=== PATIENT | female | born 1990 | race Caucasian/White ===

== ENCOUNTER 2018-08-15 10:43 | Inpatient (IN) ==
--- OUTSIDE RECORDS SUMMARY | 2018-08-15 10:48 | External Medical Summary | Continuity of Care Document ---
:1990 Author Name Doris Navarro Address Unavailable Unavailable , Care Team Providers Name Role Phone NonMNPG [email or web address] Unavailable [email or web address], [email or web address] Unavailable Unavailable Problems Active medical history not documented Allergies and Adverse Reactions Allergy history not documented Medications Medications not documented Procedures Procedures not documented Immunizations Immunizations not documented Plan of Treatment Planned Observations Planned Goals not documented Results No Known Results Results not documented
[2018-08-15] MEDS ORDERED: OXYTOCIN 10 UNITS/ML VIAL IM ONE ×2 (11:15→11:16)
[2018-08-15] MEDS ORDERED: SODIUM CHLORIDE 0.9% 1000ML 2,000 ML IV ONE (11:16)
[2018-08-15] MEDS ORDERED: fentaNYL citrate 100 MCG/2 ML VIAL IV STA (11:16)
[2018-08-15] MEDS ORDERED: fentaNYL citrate 100 MCG/2 ML VIAL ONE (11:16)
[2018-08-15 11:33] LABS: iSTAT Creatinine 0.6 mg/dl (0.6-1.3); iSTAT Hemoglobin 13.6 g/dl (12.0-16.0); iSTAT Ionized Calcium 1.04 mmol/l (1.12-1.32); iSTAT Potassium 2.8 mEq/L (3.3-5.0)
[2018-08-15 11:40] LABS: Hematocrit (blood only) 38.8 % (37-47); Hemoglobin 13.3 g/dL (12.0-16.0); Mean Corpuscular Hgb Conc 34.3 g/dL (32-36); Mean Platelet Volume 10.8 fL (7.4-10.4); Platelet Count 287 K/uL (130-400); RDW Coefficient of Variation 13.2 % (11.5-14.5); RDW Standard Deviation 44.6 fL (36.4-46.3); Red Blood Count 4.17 M/uL (4.2-5.4); White Blood Count 24.24 K/uL (4.8-10.8)
[2018-08-15] MEDS ORDERED: LABETALOL HCL IV 5 MG/ML 20ML IV ONE (11:40)
[2018-08-15] MEDS ORDERED: ACETAMINOPHEN 325 MG TAB PO PRN (11:42)
[2018-08-15] MEDS ORDERED: SUPERCREAM 0.870% 15 GM JAR EXT PRN (11:42)
[2018-08-15] MEDS ORDERED: DIPHTHERIA/TETANUS/PERTUSSIS 0.5 ML SYR/VIAL IM ONE (11:42)
[2018-08-15] MEDS ORDERED: OXYCODONE/ACETAMINOPHEN 5mg/325mg TAB PO PRN (11:42)
[2018-08-15] MEDS ORDERED: HYDROCORTISONE ACETATE 25 MG SUPP PR PRN (11:42)
[2018-08-15] MEDS ORDERED: OXYTOCIN 30 UNITS/500 ML BAG IV PRN (11:42)
[2018-08-15] MEDS ORDERED: BENZOCAINE 20% AER SPR 82.5 GM CAN EXT PRN (11:42)
[2018-08-15] MEDS ORDERED: MAGNESIUM SULFATE 4GM / WTR 100 ML BAG IV ONE ×2 (11:46→11:56)
[2018-08-15] MEDS ORDERED: LABETALOL HCL IV 5 MG/ML 20ML IV STA ×2 (11:47→12:06)
[2018-08-15 11:48] LABS: INR 0.9 (0.9-1.1); Partial Thromboplastin Ratio 0.9; Partial Thromboplastin Time 25.2 Seconds (21.0-31.0); Prothrombin Time 9.5 Seconds (9.0-12.0)
[2018-08-15] MEDS ORDERED: OXYTOCIN 30 UNITS/500ML NSS ONE (11:49)
[2018-08-15] MEDS ORDERED: MAGNESIUM SULFATE 40GM / WTR 1,000 ML BAG IV ONE ×2 (11:56→12:38)
[2018-08-15 11:59] LABS: Albumin Level 2.4 gm/dl (3.4-5.0); BUN Creatinine Ratio 9.1 (10-20); Bilirubin Direct 0.1 mg/dl (0-0.2); Calcium 8.2 mg/dl (8.5-10.1); Creatinine Clr Calc Pharmacy 87.3 ml/min; Est GFR (African American) 111.2; Est GFR (Non-African American) 95.9; Magnesium 1.5 mg/dl (1.8-2.4); Potassium 2.7 mmol/L (3.5-5.1)
--- NOTE | 2018-08-15 12:00 | Communication Note ---
Date of Service: August 15, 2018 Patient placed on monitors on L&D and found to have BP 180/100s. She notes this is "not unusual" for her and does not know what her normal / best BP range might be. Exam is NAD, breathing normally, abd postgravid, no RUQ pain, but DTR 3+ patellae and mild ankle edema bilaterally. Labs thus far do NOT appear to show preeclampsia, but with these BP values, hyperreflexia and quite possibly abruption, will assume she is atypical preeclampsia with severe features until further observation shows otherwise. Magnesium 4G bolus and 2G maintenance ordered; Cr noted to be 0.6, renal clearance should be OK. Potassium is noted to be low and will order repletion as well. Patient received first dose IV labetalol 20mg as well, will titrate doses to control of BP.
[2018-08-15 12:09] LABS: Base Excess Cord Venous Blood -13.8 mEq/L (-7.7-1.9); Cord Venous Blood HCO3 18 mmol/L (18.4-26.8); Cord Venous Blood PCO2 67 mmHg (30.4-57.2); Cord Venous Blood PO2 26 mmHg (14.1-43.3); Cord Venous Blood pH 7.05 (7.20-7.44)
[2018-08-15 12:10] LABS: O2 Saturation Cord Venous Bld < 60.0 % (<68)
[2018-08-15 12:16] LABS: Albumin Globulin Ratio 0.5 (0.9-2); Bilirubin,Total 0.4 mg/dl (0.2-1); Globulin 4.4 gm/dl (2.5-4.0); Phosphorus 0.6 mg/dl (2.5-4.9); Total Protein 6.8 gm/dl (6.4-8.2)
[2018-08-15 12:18] LABS: Base Excess Cord Arterial Bld -15.9 mEq/L (-9-1.8); CO2 Cord Arterial Blood 94 mmHg (39.1-73.5); HCO3 Cord Arterial Blood 19 mmol/L (19.7-28.5); pH Cord Arterial Blood 6.93 (7.1-7.38)
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
[2018-08-15 12:26] LABS: Basophils # (auto) 0.03 K/uL (0-0.2); Basophils % (auto) 0.1 %; Echinocytes 1+; Eosinophils # (auto) 0.05 K/uL (0-0.5); Eosinophils % (auto) 0.2 %; Immature Granulocytes # (auto) 0.07 K/uL (0.00-0.02); Immature Granulocytes % (auto) 0.3 %; Lymphocytes # (auto) 2.43 K/uL (1.2-3.4); Monocytes # (auto) 1.62 K/uL (0.11-0.59); Monocytes % (auto) 6.7 %; Neutrophils # (auto) 20.04 K/uL (1.4-6.5); Neutrophils % (auto) 82.7 %
--- NOTE | 2018-08-15 12:35 | Communication Note ---
Date of Service: August 15, 2018 Note that care of patient was signed out to Dr. Kay who returns to cover L&D. I am now in pre-op suite preparing for a planned operation in the main OR. Dr. Kay is aware of plan for Magnesium, of IV Labetalol given by my order (), and of critical Phos level just resulted prior to my departure. Cord gas results also reviewed.
[2018-08-15] MEDS: POTASSIUM CHLORIDE / WTR 10 MEQ/100 ML PLCT IV SCH ×2 (12:36→13:44)
[2018-08-15 12:39] LABS: Appearance Urine Clear (Clear); Bacteria Urine Automated 1+ (Negative); Bilirubin Urine Negative (Negative); Blood Urine Trace (Negative); Color Urine Yellow; Glucose Urine UA Negative (Negative); Leukocyte Esterase Urine Negative (Negative); Nitrite Urine Negative (Negative); Protein Urine Negative (Negative); RBC Urine Automated 0-4 /hpf (0-4); Specific Gravity Urine 1.017 (1.000-1.030); Urobilinogen Urine Negative (Negative); pH Urine 8.5 (4.5-7.5)
[2018-08-15 12:45] LABS: Ketones Urine 3+ (Negative)
[2018-08-15 12:54] LABS: Hepatitis B Surface Antibody Non-Immune
[2018-08-15 13:04] LABS: Creatinine Urine Random 33.6 mg/dl; Total Protein Urine Random 13.3 mg/dl (0-11.9)
[2018-08-15 13:05] LABS: Rubella IgG Antibody Immune (Immune)
[2018-08-15 13:06] LABS: Amphetamines+Metham, Urine Pos (Neg); Barbiturates, Urine Neg (Neg); Benzodiazepine, Urine Neg (Neg); Cocaine, Urine Neg (Neg); MDMA (Ecstacy), Urine Neg (Neg); Methadone, Urine Neg (Neg); Opiate, Urine Neg (Neg); Phencyclidine, Urine Neg (Neg)
[2018-08-15] MEDS ORDERED: MAGNESIUM SULFATE / WTR 40 GM/1,000 ML BAG IV ONE (13:15)
[2018-08-15] MEDS ORDERED: SODIUM PHOSPHATE 20 MMOL in SODIUM CHLORIDE 0.9% 500 ML IV ONE (13:15)
[2018-08-15 13:33] LABS: Hepatitis C IgG 13Yrs+Old_Rflx Neg (Neg)
[2018-08-15] MEDS: LACTATED RINGER'S 1,000 ML IV SCH (14:59)
[2018-08-15 17:47] LABS: Hematocrit (blood only) 34.7 % (37-47); Hemoglobin 11.8 g/dL (12.0-16.0); Mean Platelet Volume 10.8 fL (7.4-10.4); Platelet Count 243 K/uL (130-400); RDW Coefficient of Variation 13.2 % (11.5-14.5); RDW Standard Deviation 44.8 fL (36.4-46.3); Red Blood Count 3.73 M/uL (4.2-5.4)
[2018-08-15 18:19] LABS: Basophils # (auto) 0.01 K/uL (0-0.2); Eosinophils # (auto) 0.03 K/uL (0-0.5); Eosinophils % (auto) 0.1 %; Immature Granulocytes # (auto) 0.08 K/uL (0.00-0.02); Immature Granulocytes % (auto) 0.3 %; Lymphocytes # (auto) 2.16 K/uL (1.2-3.4); Lymphocytes % (auto) 8.6 %; Monocytes # (auto) 1.86 K/uL (0.11-0.59); Monocytes % (auto) 7.4 %; Neutrophils # (auto) 21.06 K/uL (1.4-6.5); Neutrophils % (auto) 83.6 %
[2018-08-15 18:37] LABS: Alanine Aminotransferase 19 U/L (12-78); Albumin Globulin Ratio 0.5 (0.9-2); Alkaline Phosphatase 153 U/L (45-117); Aspartate Aminotransferase 16 U/L (15-37); BUN Creatinine Ratio 10.4 (10-20); Bilirubin Direct < 0.1 mg/dl (0-0.2); Bilirubin,Total 0.3 mg/dl (0.2-1); Blood Urea Nitrogen 5 mg/dl (7-18); Calcium 6.9 mg/dl (8.5-10.1); Carbon Dioxide 22 mmol/L (21-32); Chloride 107 mmol/L (98-107); Creatinine Clr Calc Pharmacy 117.8 ml/min; Est GFR (African American) > 150.0; Est GFR (Non-African American) 131.9; Globulin 3.9 gm/dl (2.5-4.0); Glucose 100 mg/dl (70-99); Potassium 3.8 mmol/L (3.5-5.1); Sodium 136 mmol/L (136-145); Total Protein 5.9 gm/dl (6.4-8.2)
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
[2018-08-15] MEDS: METOPROLOL SUCC 50MG EXT REL TAB PO SCH (19:39)
[2018-08-15] MEDS: IBUPROFEN 600 MG TAB PO PRN (19:39)
[2018-08-15] MEDS: DOCUSATE SODIUM 100 MG CAP PO SCH (21:37)
[2018-08-15 22:40] LABS: Phosphorus 2.6 mg/dl (2.5-4.9)
[2018-08-16] MEDS: LACTATED RINGER'S 1,000 ML IV SCH (06:30)
--- NOTE | 2018-08-16 06:33 | Obstetrical Progress Note ---
Date of Service <Kiel Urena DO - Last Filed: 08/16/18 06:39> August 16, 2018 Assessment & Plan <Kiel Urena DO - Last Filed: 08/16/18 06:39> (1) Spontaneous vaginal delivery: -vital signs reviewed and WNL. BP improved, will cont monitor -last Hgb 11.8 -pt doing well clinically -encourage ambulation, monitor and control pain with motrin tylenol, cont regular diet, monitor lochia Subjective <Kiel Urena DO - Last Filed: 08/16/18 06:39> 28 y/o PPD1 found in bed this morning in NAD. Reports no acute overnight events. Pt states that she has no pain other than appropriate soreness. Reports that has not had any food intake but tolerating liquids. Has not yet attempted to ambulate. No issues with voiding, no gas/BM yet. No other a cute concerns or complaints. Review of Systems All systems reviewed & are unremarkable except as noted in HPI & below Physical Exam <Kiel Urena DO - Last Filed: 08/16/18 06:39> Constitutional WD/WN, vitals as above Respiratory normal respiratory effort, lungs clear to auscultation Cardiovascular RRR, no murmur, no edema Gastrointestinal (Abdomen) mild abd tenderness Skin no rashes, warm and dry Psychiatric A+Ox3, euthymic affect Lymphatic no LE swelling, no calf tenderness Results & Data <Kiel Urena DO - Last Filed: 08/16/18 06:39> Vital Signs (Past 12 Hours) Vital Signs Temp Pulse Pulse Resp BP Pulse Ox 08/16/18 06:26 64 98 08/16/18 06:21 69 98 08/16/18 06:16 63 97 08/16/18 06:11 68 97 08/16/18 06:06 65 97 08/16/18 06:04 61 142/78 H 08/16/18 06:01 65 98 08/16/18 05:56 63 97 08/16/18 05:51 62 99 08/16/18 05:46 64 98 08/16/18 05:41 61 99 08/16/18 05:36 67 99 06/18/19 05:31 68 99 06/18/19 05:26 68 100 06/18/19 05:21 66 99 06/18/19 05:16 70 99 06/18/19 05:12 18 06/18/19 05:11 65 98 06/18/19 05:06 71 100 06/18/19 05:04 71 152/92 H 18/19 05:01 67 100 06/18/19 04:56 66 99 06/18/19 04:51 67 99 06/18/19 04:46 66 99 06/18/19 04:41 61 99 06/18/19 04:36 66 98 06/18/19 04:31 60 98 06/18/19 04:26 62 99 06/18/19 04:21 61 98 06/18/19 04:16 61 99 06/18/19 04:11 61 99 0618/19 04:06 62 98 06/18/19 04:04 58 L 148/81 H 08/16/ 04:01 64 98 0618/19 04:00 36.7 C 18 98 0618/19 03:56 68 99 06/18/19 03:51 72 100 06/18/19 03:46 71 99 06/18/19 03:41 65 98 06/18/19 03:36 64 98 06/18/19 03:31 61 99 06/18/19 03:26 62 99 06/18/19 03:21 62 99 06/18/19 03:16 61 97 06/18/19 03:11 66 98 06/18/19 03:06 69 98 06/18/19 03:04 64 143/80 H 18/19 03:01 62 98 06/18/19 02:56 63 98 06/18/19 02:51 61 99 06/18/19 02:46 61 100 06/18/19 02:41 66 97 06/18/19 02:36 64 99 06/18/19 02:31 76 99 06/18/19 02:26 63 99 06/18/19 02:21 61 98 06/18/19 02:16 68 98 06/18/19 02:11 64 97 06/18/19 02:06 73 98 06/18/19 02:04 72 131/87 18/19 02:01 67 97 06/18/19 02:00 18 18/19 01:56 65 97 18/19 01:51 65 98 18/19 01:46 64 98 18/19 01:41 62 98 18/19 01:36 68 97 18/19 01:31 70 99 18/19 01:26 71 99 18/19 01:21 72 99 18/19 01:16 70 99 18 01:11 66 97 18 01:07 20 08/16/18 01:06 68 98 18 01:04 68 132/82 18/ 01:01 68 98 18 00:56 67 98 18 00:51 67 98 18/ 00:46 68 97 18/ 00:41 68 98 18 00:36 70 98 18/ 00:31 70 98 18/ 00:26 72 98 18 00:21 71 98 1819 00:16 79 99 18/19 00:11 71 100 18/19 00:06 72 100 18/19 00:04 73 175/93 H 18 00:01 69 100 18/19 00:00 18 99 17 23:56 68 99 17/19 23:51 68 98 17/19 23:46 66 98 17/19 23:41 67 98 17/19 23:36 67 98 17/19 23:31 66 98 1719 23:26 69 99 17/19 23:21 68 98 17/19 23:16 81 98 17/19 23:11 76 98 0617/19 23:06 85 98 1719 23:04 82 150/93 H 17 23:01 72 99 1719 23:00 36.7 C 66 18 99 17/19 22:56 75 99 17/19 22:51 77 99 17/19 22:46 74 99 17/19 22:41 73 99 17/19 22:36 71 98 1719 22:31 76 98 06/17/19 22:26 69 97 08/15/18 22:21 68 98 08/15/18 22:16 71 98 08/15/18 22:11 79 99 08/15/18 22:06 72 97 08/15/18 22:04 67 148/84 H 08/15/18 22:01 70 97 08/15/18 22:00 18 06 21:56 71 98 08/15/18 21:51 69 99 08/15/18 21:46 71 98 08/15/18 21:41 78 97 08/15/18 21:36 84 98 08/15/18 21:31 78 100 08/15/18 21:26 83 99 08/15/18 21:21 77 100 08/15/18 21:16 82 100 08/15/18 21:11 76 99 08/15/18 21:06 76 100 08/15/18 21:04 78 165/99 H 08/15/18 21:01 71 99 08/15/18 20:56 74 97 08/15/18 20:51 80 98 08/15/18 20:46 84 98 08/15/18 20:41 84 97 08/15/18 20:36 85 98 08/15/18 20:31 82 98 08/15/18 20:26 85 98 08/15/18 20:21 88 99 08/15/18 20:16 87 99 08/15/18 20:11 84 99 08/15/18 20:06 86 100 08/15/18 20:04 85 159/95 H 08/15/18 20:01 81 100 08/15/18 20:00 37.1 C 88 18 99 08/15/18 19:40 80 100 08/15/18 19:36 80 163/97 H 08/15/18 19:35 79 100 08/15/18 19:30 81 100 08/15/18 19:25 82 100 06 19:21 83 158/97 H 08/15/18 19:20 84 100 17 19:15 78 100 08/15/18 19:10 80 100 06 19:06 80 161/93 H 08/15/18 19:05 89 100 1719 19:00 78 100 08/15/18 18:55 75 100 08/15/18 18:51 80 154/90 H 08/15/18 18:50 77 100 08/15/18 18:45 80 100 08/15/18 18:40 78 100 08/15/18 18:36 86 170/96 H 08/15/18 18:35 79 100 Laboratory Results Laboratory Results - last 24 hr 08/15/18 08/15/18 08/15/18 11:00 11:00 11:19 WBC RBC Hgb POC Hgb 13.6 Hct POC Hct 40 MCV MCH MCHC RDW Std Deviation RDW Coeff of Miguel Angel Plt Count MPV Immature Gran % (Auto) Neut % (Auto) Lymph % (Auto) Stokes % (Auto) Eos % (Auto) Baso % (Auto) Immature Gran # (Auto) Neut # (Auto) Lymph # (Auto) Stokes # (Auto) Eos # (Auto) Baso # (Auto) Echinocytes PT INR APTT PTT Ratio Cord ABG pH 6.93 L Cord ABG pCO2 94 H Cord ABG pO2 15.0 Cord ABG HCO3 19 L Cord ABG Base Excess -15.9 L Cord ABG O2 Sat < 60.0 Cord VBG pH 7.05 L Cord VBG pCO2 67 H Cord VBG pO2 26 Cord VBG HCO3 18 L Cord VBG Base Excess -13.8 L Cord VBG O2 Sat < 60.0 Barometric Pressure 732.6 732.6 Blood Gas Comments MALDONADO MALDONADO POC Sodium 139 Sodium POC Potassium 2.8 L Potassium POC Chloride 105 Chloride Carbon Dioxide POC Total CO2 14 L Anion Gap POC Anion Gap 24.0 POC BUN 6 L BUN Creatinine POC Creatinine 0.6 Est Cr Clr Drug Dosing Est GFR ( Amer) Est GFR (Non-Af Amer) BUN/Creatinine Ratio Glucose POC Glucose (other) 124 H Calcium POC Ioniz Calcium Lita 1.04 L Phosphorus Magnesium Magnesium (Sulf Ther) Total Bilirubin Direct Bilirubin AST ALT Alkaline Phosphatase Total Protein Albumin Globulin Albumin/Globulin Ratio TSH Urine Color Urine Appearance Urine pH Ur Specific [place] Urine Protein Urine Glucose (UA) Urine Ketones Urine Blood Urine Nitrite Urine Bilirubin Urine Urobilinogen Ur Leukocyte Esterase Urine WBC (Auto) Urine RBC (Auto) U Hyaline Cast (Auto) U Epithel Cells (Auto) Urine Bacteria (Auto) Ur Random Creatinine U Random Total Protein Protein/Creatinin Ratio Urine Opiates Screen Ur Methadone, Qual Urine Barbiturates Ur Phencyclidine (PCP) U Amphetamines Confirm U Amphetamin/Meth Scrn U Methamphetamin Confrm MDMA (Ecstasy) Screen U Benzodiazepines Scrn Ur Cocaine Metabolite U Marijuana (THC) Screen Ethyl Alcohol mg/dL RPR Hep Bs Antigen Hep Bs Antibody Hep Bs Antibody, Quant Hepatitis C Antibody HIV 1&2 Ab/P24 Ag 4thGn Rubella IgG Antibody Blood Type 08/15/18 08/15/18 08/15/18 11:24 11:24 11:24 WBC 24.24 H RBC 4.17 L Hgb 13.3 POC Hgb Hct 38.8 POC Hct MCV 93.0 MCH 31.9 MCHC 34.3 RDW Std Deviation 44.6 RDW Coeff of Miguel Angel 13.2 Plt Count 287 MPV 10.8 H Immature Gran % (Auto) 0.3 Neut % (Auto) 82.7 Lymph % (Auto) 10.0 Stokes % (Auto) 6.7 Eos % (Auto) 0.2 Baso % (Auto) 0.1 Immature Gran # (Auto) 0.07 H Neut # (Auto) 20.04 H Lymph # (Auto) 2.43 Stokes # (Auto) 1.62 H Eos # (Auto) 0.05 Baso # (Auto) 0.03 Echinocytes 1+ PT 9.5 INR 0.9 APTT 25.2 PTT Ratio 0.9 Cord ABG pH Cord ABG pCO2 Cord ABG pO2 Cord ABG HCO3 Cord ABG Base Excess Cord ABG O2 Sat Cord VBG pH Cord VBG pCO2 Cord VBG pO2 Cord VBG HCO3 Cord VBG Base Excess Cord VBG O2 Sat Barometric Pressure Blood Gas Comments POC Sodium Sodium POC Potassium Potassium POC Chloride Chloride Carbon Dioxide POC Total CO2 Anion Gap POC Anion Gap POC BUN BUN Creatinine POC Creatinine Est Cr Clr Drug Dosing Est GFR ( Amer) Est GFR (Non-Af Amer) BUN/Creatinine Ratio Glucose POC Glucose (other) Calcium POC Ioniz Calcium Lita Phosphorus Magnesium Magnesium (Sulf Ther) Total Bilirubin Direct Bilirubin AST ALT Alkaline Phosphatase Total Protein Albumin Globulin Albumin/Globulin Ratio TSH Urine Color Urine Appearance Urine pH Ur Specific [place] Urine Protein Urine Glucose (UA) Urine Ketones Urine Blood Urine Nitrite Urine Bilirubin Urine Urobilinogen Ur Leukocyte Esterase Urine WBC (Auto) Urine RBC (Auto) U Hyaline Cast (Auto) U Epithel Cells (Auto) Urine Bacteria (Auto) Ur Random Creatinine U Random Total Protein Protein/Creatinin Ratio Urine Opiates Screen Ur Methadone, Qual Urine Barbiturates Ur Phencyclidine (PCP) U Amphetamines Confirm U Amphetamin/Meth Scrn U Methamphetamin Confrm MDMA (Ecstasy) Screen U Benzodiazepines Scrn Ur Cocaine Metabolite U Marijuana (THC) Screen Ethyl Alcohol mg/dL RPR Hep Bs Antigen Hep Bs Antibody Hep Bs Antibody, Quant Hepatitis C Antibody HIV 1&2 Ab/P24 Ag 4thGn Rubella IgG Antibody Blood Type B Positive 08/15/18 08/15/18 08/15/18 11:24 11:52 11:52 WBC RBC Hgb POC Hgb Hct POC Hct MCV MCH MCHC RDW Std Deviation RDW Coeff of Miguel Angel Plt Count MPV Immature Gran % (Auto) Neut % (Auto) Lymph % (Auto) Stokes % (Auto) Eos % (Auto) Baso % (Auto) Immature Gran # (Auto) Neut # (Auto) Lymph # (Auto) Stokes # (Auto) Eos # (Auto) Baso # (Auto) Echinocytes PT INR APTT PTT Ratio Cord ABG pH Cord ABG pCO2 Cord ABG pO2 Cord ABG HCO3 Cord ABG Base Excess Cord ABG O2 Sat Cord VBG pH Cord VBG pCO2 Cord VBG pO2 Cord VBG HCO3 Cord VBG Base Excess Cord VBG O2 Sat Barometric Pressure Blood Gas Comments POC Sodium Sodium 139 POC Potassium Potassium 2.7 L POC Chloride Chloride 106 Carbon Dioxide 17 L POC Total CO2 Anion Gap 15.0 H POC Anion Gap POC BUN BUN 8 Creatinine 0.84 POC Creatinine Est Cr Clr Drug Dosing 87.3 Est GFR ( Amer) 111.2 Est GFR (Non-Af Amer) 95.9 BUN/Creatinine Ratio 9.1 L Glucose 115 H POC Glucose (other) Calcium 8.2 L POC Ioniz Calcium Lita Phosphorus 0.6 L* Magnesium 1.5 L Magnesium (Sulf Ther) Total Bilirubin 0.4 Direct Bilirubin 0.1 AST 16 ALT 20 Alkaline Phosphatase 182 H Total Protein 6.8 Albumin 2.4 L Globulin 4.4 H Albumin/Globulin Ratio 0.5 L TSH 2.290 Urine Color Urine Appearance Urine pH Ur Specific [place] Urine Protein Urine Glucose (UA) Urine Ketones Urine Blood Urine Nitrite Urine Bilirubin Urine Urobilinogen Ur Leukocyte Esterase Urine WBC (Auto) Urine RBC (Auto) U Hyaline Cast (Auto) U Epithel Cells (Auto) Urine Bacteria (Auto) Ur Random Creatinine U Random Total Protein Protein/Creatinin Ratio Urine Opiates Screen Ur Methadone, Qual Urine Barbiturates Ur Phencyclidine (PCP) U Amphetamines Confirm U Amphetamin/Meth Scrn U Methamphetamin Confrm MDMA (Ecstasy) Screen U Benzodiazepines Scrn Ur Cocaine Metabolite U Marijuana (THC) Screen Ethyl Alcohol mg/dL < 3.0 RPR Hep Bs Antigen Hep Bs Antibody Non-Immune Hep Bs Antibody, Quant < 3.10 L Hepatitis C Antibody Neg HIV 1&2 Ab/P24 Ag 4thGn Rubella IgG Antibody Immune Blood Type 08/15/18 08/15/18 08/15/18 11:52 11:52 11:52 WBC RBC Hgb POC Hgb Hct POC Hct MCV MCH MCHC RDW Std Deviation RDW Coeff of Miguel Angel Plt Count MPV Immature Gran % (Auto) Neut % (Auto) Lymph % (Auto) Stokes % (Auto) Eos % (Auto) Baso % (Auto) Immature Gran # (Auto) Neut # (Auto) Lymph # (Auto) Stokes # (Auto) Eos # (Auto) Baso # (Auto) Echinocytes PT INR APTT PTT Ratio Cord ABG pH Cord ABG pCO2 Cord ABG pO2 Cord ABG HCO3 Cord ABG Base Excess Cord ABG O2 Sat Cord VBG pH Cord VBG pCO2 Cord VBG pO2 Cord VBG HCO3 Cord VBG Base Excess Cord VBG O2 Sat Barometric Pressure Blood Gas Comments POC Sodium Sodium POC Potassium Potassium POC Chloride Chloride Carbon Dioxide POC Total CO2 Anion Gap POC Anion Gap POC BUN BUN Creatinine POC Creatinine Est Cr Clr Drug Dosing Est GFR ( Amer) Est GFR (Non-Af Amer) BUN/Creatinine Ratio Glucose POC Glucose (other) Calcium POC Ioniz Calcium Lita Phosphorus Magnesium Magnesium (Sulf Ther) Total Bilirubin Direct Bilirubin AST ALT Alkaline Phosphatase Total Protein Albumin Globulin Albumin/Globulin Ratio TSH Urine Color Urine Appearance Urine pH Ur Specific [place] Urine Protein Urine Glucose (UA) Urine Ketones Urine Blood Urine Nitrite Urine Bilirubin Urine Urobilinogen Ur Leukocyte Esterase Urine WBC (Auto) Urine RBC (Auto) U Hyaline Cast (Auto) U Epithel Cells (Auto) Urine Bacteria (Auto) Ur Random Creatinine U Random Total Protein Protein/Creatinin Ratio Urine Opiates Screen Ur Methadone, Qual Urine Barbiturates Ur Phencyclidine (PCP) U Amphetamines Confirm U Amphetamin/Meth Scrn U Methamphetamin Confrm MDMA (Ecstasy) Screen U Benzodiazepines Scrn Ur Cocaine Metabolite U Marijuana (THC) Screen Ethyl Alcohol mg/dL RPR Nonreactive Hep Bs Antigen Neg Hep Bs Antibody Hep Bs Antibody, Quant Hepatitis C Antibody HIV 1&2 Ab/P24 Ag 4thGn Neg Rubella IgG Antibody Blood Type 08/15/18 08/15/18 08/15/18 11:55 11:55 11:55 WBC RBC Hgb POC Hgb Hct POC Hct MCV MCH MCHC RDW Std Deviation RDW Coeff of Miguel Angel Plt Count MPV Immature Gran % (Auto) Neut % (Auto) Lymph % (Auto) Stokes % (Auto) Eos % (Auto) Baso % (Auto) Immature Gran # (Auto) Neut # (Auto) Lymph # (Auto) Stokes # (Auto) Eos # (Auto) Baso # (Auto) Echinocytes PT INR APTT PTT Ratio Cord ABG pH Cord ABG pCO2 Cord ABG pO2 Cord ABG HCO3 Cord ABG Base Excess Cord ABG O2 Sat Cord VBG pH Cord VBG pCO2 Cord VBG pO2 Cord VBG HCO3 Cord VBG Base Excess Cord VBG O2 Sat Barometric Pressure Blood Gas Comments POC Sodium Sodium POC Potassium Potassium POC Chloride Chloride Carbon Dioxide POC Total CO2 Anion Gap POC Anion Gap POC BUN BUN Creatinine POC Creatinine Est Cr Clr Drug Dosing Est GFR ( Amer) Est GFR (Non-Af Amer) BUN/Creatinine Ratio Glucose POC Glucose (other) Calcium POC Ioniz Calcium Lita Phosphorus Magnesium Magnesium (Sulf Ther) Total Bilirubin Direct Bilirubin AST ALT Alkaline Phosphatase Total Protein Albumin Globulin Albumin/Globulin Ratio TSH Urine Color Yellow Urine Appearance Clear Urine pH 8.5 H Ur Specific [place] 1.017 Urine Protein Negative Urine Glucose (UA) Negative Urine Ketones 3+ H Urine Blood Trace H Urine Nitrite Negative Urine Bilirubin Negative Urine Urobilinogen Negative Ur Leukocyte Esterase Negative Urine WBC (Auto) 1-5 Urine RBC (Auto) 0-4 U Hyaline Cast (Auto) 1-5 U Epithel Cells (Auto) 10-20 H Urine Bacteria (Auto) 1+ H Ur Random Creatinine 33.6 U Random Total Protein 13.3 H Protein/Creatinin Ratio 0.4 H Urine Opiates Screen Neg Ur Methadone, Qual Neg Urine Barbiturates Neg Ur Phencyclidine (PCP) Neg U Amphetamines Confirm U Amphetamin/Meth Scrn Pos H U Methamphetamin Confrm MDMA (Ecstasy) Screen Neg U Benzodiazepines Scrn Neg Ur Cocaine Metabolite Neg U Marijuana (THC) Screen Neg Ethyl Alcohol mg/dL RPR Hep Bs Antigen Hep Bs Antibody Hep Bs Antibody, Quant Hepatitis C Antibody HIV 1&2 Ab/P24 Ag 4thGn Rubella IgG Antibody Blood Type 08/15/18 08/15/18 08/15/18 11:55 17:17 17:18 WBC 25.20 H RBC 3.73 L Hgb 11.8 L POC Hgb Hct 34.7 L POC Hct MCV 93.0 MCH 31.6 MCHC 34.0 RDW Std Deviation 44.8 RDW Coeff of Miguel Angel 13.2 Plt Count 243 MPV 10.8 H Immature Gran % (Auto) 0.3 Neut % (Auto) 83.6 Lymph % (Auto) 8.6 Stokes % (Auto) 7.4 Eos % (Auto) 0.1 Baso % (Auto) 0.0 Immature Gran # (Auto) 0.08 H Neut # (Auto) 21.06 H Lymph # (Auto) 2.16 Stokes # (Auto) 1.86 H Eos # (Auto) 0.03 Baso # (Auto) 0.01 Echinocytes PT INR APTT PTT Ratio Cord ABG pH Cord ABG pCO2 Cord ABG pO2 Cord ABG HCO3 Cord ABG Base Excess Cord ABG O2 Sat Cord VBG pH Cord VBG pCO2 Cord VBG pO2 Cord VBG HCO3 Cord VBG Base Excess Cord VBG O2 Sat Barometric Pressure Blood Gas Comments POC Sodium Sodium 136 POC Potassium Potassium 3.8 D POC Chloride Chloride 107 Carbon Dioxide 22 POC Total CO2 Anion Gap 7.0 POC Anion Gap POC BUN BUN 5 L Creatinine 0.52 L D POC Creatinine Est Cr Clr Drug Dosing 117.8 Est GFR ( Amer) > 150.0 Est GFR (Non-Af Amer) 131.9 BUN/Creatinine Ratio 10.4 Glucose 100 H POC Glucose (other) Calcium 6.9 L D POC Ioniz Calcium Lita Phosphorus Magnesium Magnesium (Sulf Ther) Total Bilirubin 0.3 Direct Bilirubin < 0.1 AST 16 ALT 19 Alkaline Phosphatase 153 H Total Protein 5.9 L Albumin 2.0 L Globulin 3.9 Albumin/Globulin Ratio 0.5 L TSH Urine Color Urine Appearance Urine pH Ur Specific [place] Urine Protein Urine Glucose (UA) Urine Ketones Urine Blood Urine Nitrite Urine Bilirubin Urine Urobilinogen Ur Leukocyte Esterase Urine WBC (Auto) Urine RBC (Auto) U Hyaline Cast (Auto) U Epithel Cells (Auto) Urine Bacteria (Auto) Ur Random Creatinine U Random Total Protein Protein/Creatinin Ratio Urine Opiates Screen Ur Methadone, Qual Urine Barbiturates Ur Phencyclidine (PCP) U Amphetamines Confirm Pending U Amphetamin/Meth Scrn U Methamphetamin Confrm Pending MDMA (Ecstasy) Screen U Benzodiazepines Scrn Ur Cocaine Metabolite U Marijuana (THC) Screen Ethyl Alcohol mg/dL RPR Hep Bs Antigen Hep Bs Antibody Hep Bs Antibody, Quant Hepatitis C Antibody HIV 1&2 Ab/P24 Ag 4thGn Rubella IgG Antibody Blood Type 08/15/18 21:35 WBC RBC Hgb POC Hgb Hct POC Hct MCV MCH MCHC RDW Std Deviation RDW Coeff of Miguel Angel Plt Count MPV Immature Gran % (Auto) Neut % (Auto) Lymph % (Auto) Stokes % (Auto) Eos % (Auto) Baso % (Auto) Immature Gran # (Auto) Neut # (Auto) Lymph # (Auto) Stokes # (Auto) Eos # (Auto) Baso # (Auto) Echinocytes PT INR APTT PTT Ratio Cord ABG pH Cord ABG pCO2 Cord ABG pO2 Cord ABG HCO3 Cord ABG Base Excess Cord ABG O2 Sat Cord VBG pH Cord VBG pCO2 Cord VBG pO2 Cord VBG HCO3 Cord VBG Base Excess Cord VBG O2 Sat Barometric Pressure Blood Gas Comments POC Sodium Sodium POC Potassium Potassium POC Chloride Chloride Carbon Dioxide POC Total CO2 Anion Gap POC Anion Gap POC BUN BUN Creatinine POC Creatinine Est Cr Clr Drug Dosing Est GFR ( Amer) Est GFR (Non-Af Amer) BUN/Creatinine Ratio Glucose POC Glucose (other) Calcium POC Ioniz Calcium Lita Phosphorus 2.6 D Magnesium Magnesium (Sulf Ther) 6.0 Total Bilirubin Direct Bilirubin AST ALT Alkaline Phosphatase Total Protein Albumin Globulin Albumin/Globulin Ratio TSH Urine Color Urine Appearance Urine pH Ur Specific [place] Urine Protein Urine Glucose (UA) Urine Ketones Urine Blood Urine Nitrite Urine Bilirubin Urine Urobilinogen Ur Leukocyte Esterase Urine WBC (Auto) Urine RBC (Auto) U Hyaline Cast (Auto) U Epithel Cells (Auto) Urine Bacteria (Auto) Ur Random Creatinine U Random Total Protein Protein/Creatinin Ratio Urine Opiates Screen Ur Methadone, Qual Urine Barbiturates Ur Phencyclidine (PCP) U Amphetamines Confirm U Amphetamin/Meth Scrn U Methamphetamin Confrm MDMA (Ecstasy) Screen U Benzodiazepines Scrn Ur Cocaine Metabolite U Marijuana (THC) Screen Ethyl Alcohol mg/dL RPR Hep Bs Antigen Hep Bs Antibody Hep Bs Antibody, Quant Hepatitis C Antibody HIV 1&2 Ab/P24 Ag 4thGn Rubella IgG Antibody Blood Type Medications Administered Current Inpatient Medications Acetaminophen (Tylenol) 650 mg PO Q6H PRN PRN Reason: Pain/LOYA/Fever Stop: 09/14/18 11:41 Benzocaine (Dermoplast Pain Relieving [place]) 1 appln EXT PRN PRN PRN Reason: Perineal Discomfort Stop: 09/14/18 11:41 Cocaine HCl (Supercream 0.870%) 1 gm EXT BID PRN PRN Reason: Hemorrhoidal Inflammation Stop: 08/29/18 11:41 Docusate Sodium (Colace) 100 mg PO BID [facility] Stop: 09/14/18 20:59 Last Admin: 08/15/18 21:37 Dose: 100 mg Documented by: Hydrocortisone (Anusol Hc) 25 mg MD BID PRN PRN Reason: Hemorrhoidal Inflammation Stop: 09/14/18 11:41 Oxytocin (Pitocin) 30 units in 500 mls @ 333.333 mls/hr IV .Q1H30M PRN; Protocol PRN Reason: Bleeding Control Stop: 09/14/18 11:41 Last Titration: 08/15/18 19:07 Dose: Infused Documented by: Lactated Ringer's (Lr) 1,000 mls @ 125 mls/hr IV .Q8H [facility] Stop: 09/14/18 11:44 Last Admin: 08/16/18 06:30 Dose: 75 mls/hr Documented by: Magnesium Sulfate (Magnesium Sulfate / Wtr) 40 gm in 1,000 mls @ 50 mls/hr IV .Q20H ONE Stop: 08/16/18 09:14 Last Infusion: 08/16/18 06:00 Dose: 50 mls/hr Documented by: Ibuprofen (Motrin) 600 mg PO Q4H PRN PRN Reason: Pain/LOYA/Cramping/Fever Stop: 09/14/18 11:41 Last Admin: 08/15/18 19:39 Dose: 600 mg Documented by: Metoprolol Succinate (Toprol Xl) 50 mg PO QAM [facility] Stop: 09/14/18 18:59 Last Admin: 08/15/18 19:39 Dose: 50 mg Documented by: Oxycodone/Acetaminophen (Percocet 5mg/325mg) 1 tab PO Q4H PRN PRN Reason: Pain not relieved by... Stop: 08/29/18 11:41 Prenat Multivit/[place]/Iron/Folic Ac ( Vitamin) 1 tab PO QAM [facility] Stop: 09/15/18 08:59 <Nidia Kay MD, FACOG - Last Filed: 08/16/18 06:50> Co-Signing Physician Notes Resident Physician Supervision Note: I interviewed and examined the patient. Discussed with [Gary] and agree with findings and plan as documented in the note. Any exceptions or clarifications are listed here: See my note for plan Documented By: Nidia Kay MD, FACOG Resident Activity Tracking <Kiel Urena DO - Last Filed: 08/16/18 06:39> Resident Involvement: Resident Care Provided Care Provided: OB Delivery
--- NOTE | 2018-08-16 06:41 | Obstetrical Progress Note ---
Date of Service Patient feeling well. No H/A, No visual changes. Feels drowsy on magnesium sulfate August 16, 2018 Assessment & Plan (1) labor: Patient is known to be a chronic hypertensive had no care I do not really think she has preeclampsia as her labs have all been all normal at this stage we will stop the magnesium sulfate as she is almost 24 hours if labs are normal this morning we will move her to the regular floor Physical Exam Constitutional: WD/WN, vitals as above Respiratory: normal respiratory effort, lungs clear to auscultation Cardiovascular: RRR, no murmur, no edema Genitourinary: Ext neg Results & Data Vital Signs (Past 12 Hours) Vital Signs Temp Pulse Pulse Resp BP Pulse Ox 08/16/18 06:36 69 98 08/16/18 06:31 61 98 08/16/18 06:26 64 98 08/16/18 06:21 69 98 08/16/18 06:16 63 97 08/16/18 06:11 68 97 08/16/18 06:06 65 97 08/16/18 06:04 61 142/78 H 08/16/18 06:01 65 98 08/16/18 05:56 63 97 08/16/18 05:51 62 99 08/16/18 05:46 64 98 08/16/18 05:41 61 99 08/16/18 05:36 67 99 08/16/18 05:31 68 99 08/16/18 05:26 68 100 08/16/18 05:21 66 99 08/16/18 05:16 70 99 08/16/18 05:12 18 08/16/18 05:11 65 98 08/16/18 05:06 71 100 08/16/18 05:04 71 152/92 H 08/16/18 05:01 67 100 08/16/18 04:56 66 99 08/16/18 04:51 67 99 08/16/18 04:46 66 99 08/16/18 04:41 61 99 08/16/18 04:36 66 98 08/16/18 04:31 60 98 08/16/18 04:26 62 99 08/16/18 04:21 61 98 08/16/18 04:16 61 99 08/16/18 04:11 61 99 08/16/18 04:06 62 98 06/18/19 04:04 58 L 148/81 H 06/18/19 04:01 64 98 06/18/19 04:00 36.7 C 18 98 06/18/19 03:56 68 99 06/18/19 03:51 72 100 06/18/19 03:46 71 99 06/18/19 03:41 65 98 06/18/19 03:36 64 98 06/18/19 03:31 61 99 06/18/19 03:26 62 99 06/18/19 03:21 62 99 06/18/19 03:16 61 97 06/18/19 03:11 66 98 06/18/19 03:06 69 98 06/18/19 03:04 64 143/80 H 18/19 03:01 62 98 06/18/19 02:56 63 98 06/18/19 02:51 61 99 06/18/19 02:46 61 100 06/18/19 02:41 66 97 /18/19 02:36 64 99 06/18/19 02:31 76 99 /18/19 02:26 63 99 06/18/19 02:21 61 98 06/18/19 02:16 68 98 06/18/19 02:11 64 97 /18/19 02:06 73 98 06/18/19 02:04 72 131/87 18/19 02:01 67 97 06/18/19 02:00 18 /18/19 01:56 65 97 06/18/19 01:51 65 98 /18/19 01:46 64 98 06/18/19 01:41 62 98 /18/19 01:36 68 97 06/18/19 01:31 70 99 06/18/19 01:26 71 99 06/18/19 01:21 72 99 06/18/19 01:16 70 99 06/18/19 01:11 66 97 06/18/19 01:07 20 /18/19 01:06 68 98 06/18/19 01:04 68 132/82 06/18/19 01:01 68 98 06/18/19 00:56 67 98 06/18/19 00:51 67 98 06/18/19 00:46 68 97 06/18/19 00:41 68 98 06/18/19 00:36 70 98 06/18/19 00:31 70 98 18 00:26 72 98 18 00:21 71 98 18 00:16 79 99 18 00:11 71 100 18 00:06 72 100 18 00:04 73 175/93 H 08/16/18 00:01 69 100 18 00:00 18 99 08/15/18 23:56 68 99 08/15/18 23:51 68 98 08/15/18 23:46 66 98 08/15/18 23:41 67 98 08/15/18 23:36 67 98 08/15/18 23:31 66 98 08/15/18 23:26 69 99 08/15/18 23:21 68 98 08/15/18 23:16 81 98 08/15/18 23:11 76 98 08/15/18 23:06 85 98 08/15/18 23:04 82 150/93 H 08/15/18 23:01 72 99 08/15/18 23:00 36.7 C 66 18 99 08/15/18 22:56 75 99 08/15/18 22:51 77 99 08/15/18 22:46 74 99 08/15/18 22:41 73 99 08/15/18 22:36 71 98 08/15/18 22:31 76 98 08/15/18 22:26 69 97 08/15/18 22:21 68 98 08/15/18 22:16 71 98 08/15/18 22:11 79 99 08/15/18 22:06 72 97 08/15/18 22:04 67 148/84 H 08/15/18 22:01 70 97 08/15/18 22:00 18 08/15/18 21:56 71 98 08/15/18 21:51 69 99 08/15/18 21:46 71 98 08/15/18 21:41 78 97 08/15/18 21:36 84 98 08/15/18 21:31 78 100 08/15/18 21:26 83 99 08/15/18 21:21 77 100 08/15/18 21:16 82 100 08/15/18 21:11 76 99 08/15/18 21:06 76 100 08/15/18 21:04 78 165/99 H 08/15/18 21:01 71 99 08/15/18 20:56 74 97 08/15/18 20:51 80 98 08/15/18 20:46 84 98 08/15/18 20:41 84 97 08/15/18 20:36 85 98 08/15/18 20:31 82 98 08/15/18 20:26 85 98 08/15/18 20:21 88 99 08/15/18 20:16 87 99 08/15/18 20:11 84 99 08/15/18 20:06 86 100 08/15/18 20:04 85 159/95 H 08/15/18 20:01 81 100 08/15/18 20:00 37.1 C 88 18 99 08/15/18 19:40 80 100 08/15/18 19:36 80 163/97 H 08/15/18 19:35 79 100 08/15/18 19:30 81 100 08/15/18 19:25 82 100 08/15/18 19:21 83 158/97 H 08/15/18 19:20 84 100 08/15/18 19:15 78 100 08/15/18 19:10 80 100 08/15/18 19:06 80 161/93 H 08/15/18 19:05 89 100 08/15/18 19:00 78 100 08/15/18 18:55 75 100 08/15/18 18:51 80 154/90 H 08/15/18 18:50 77 100 08/15/18 18:45 80 100 08/15/18 18:40 78 100 (1) labor Fetus number: single or unspecified fetus labor delivery status: with delivery in unspecified trimester labor trimester: unspecified labor trimester Qualified Code(s): O60.10X0 - labor with delivery, unspecified trimester, not applicable or unspecified
[2018-08-16 07:23] LABS: Hematocrit (blood only) 38.2 % (37-47); Mean Corpuscular Volume 93.2 fL (80-100); Mean Platelet Volume 10.6 fL (7.4-10.4); Platelet Count 244 K/uL (130-400); RDW Coefficient of Variation 13.6 % (11.5-14.5); White Blood Count 19.22 K/uL (4.8-10.8)
[2018-08-16 07:42] LABS: Alanine Aminotransferase 25 U/L (12-78); Aspartate Aminotransferase 25 U/L (15-37); BUN Creatinine Ratio 8.3 (10-20); Bilirubin Direct < 0.1 mg/dl (0-0.2); Blood Urea Nitrogen 6 mg/dl (7-18); Calcium 6.4 mg/dl (8.5-10.1); Carbon Dioxide 23 mmol/L (21-32); Chloride 105 mmol/L (98-107); Creatinine Clr Calc Pharmacy 92.8 ml/min; Est GFR (African American) 141.3; Est GFR (Non-African American) 121.9; Glucose 99 mg/dl (70-99); Potassium 3.6 mmol/L (3.5-5.1); Sodium 136 mmol/L (136-145)
[2018-08-16 07:45] LABS: Albumin Globulin Ratio 0.5 (0.9-2); Alkaline Phosphatase 157 U/L (45-117); Bilirubin,Total 0.3 mg/dl (0.2-1); Globulin 4.2 gm/dl (2.5-4.0); Total Protein 6.2 gm/dl (6.4-8.2)
[2018-08-16] MEDS: DOCUSATE SODIUM 100 MG CAP PO SCH ×2 (08:39→20:56)
[2018-08-16] MEDS: PRENATAL VITAMIN 1 TAB PO SCH (08:39)
[2018-08-16] MEDS: METOPROLOL SUCC 50MG EXT REL TAB PO SCH (08:39)
[2018-08-16] MEDS: BUPRENORPHINE HCL 8 MG SUBL SL SCH ×2 (08:39→20:56)
[2018-08-16] MEDS: IBUPROFEN 600 MG TAB PO PRN ×2 (13:53→20:57)
[2018-08-17 06:13] LABS: Hematocrit (blood only) 31.8 % (37-47); Hemoglobin 10.5 g/dL (12.0-16.0)
--- NOTE | 2018-08-17 06:59 | Obstetrical Progress Note ---
Date of Service <Kiel Urena DO - Last Filed: 08/17/18 07:04> August 17, 2018 Assessment & Plan <Kiel Urena DO - Last Filed: 08/17/18 07:04> (1) Spontaneous vaginal delivery: -vital signs reviewed and WNL. BP stable now -last Hgb 10.5 -pt doing well clinically -encourage ambulation, monitor and control pain with motrin tylenol, cont regular diet, monitor lochia -plan for d/c today Subjective <Kiel Urena DO - Last Filed: 08/17/18 07:04> 28 y/o PPD2 found in bed this morning in NAD. Reports no acute overnight events. Pt states that she has no pain other than appropriate soreness. Tolerating PO intake without N/V. No issues with ambulation. No issues with voiding. No other acute concerns or complaints. Ok with plan for d/c today. Review of Systems All systems reviewed & are unremarkable except as noted in HPI & below Physical Exam <Kiel Urena, DO - Last Filed: 08/17/18 07:04> Constitutional WD/WN, vitals as above Respiratory normal respiratory effort, lungs clear to auscultation Cardiovascular RRR, no murmur, no edema Gastrointestinal (Abdomen) mild abd tenderness Fundus not palpated, please see attendings findings Skin no rashes, warm and dry Psychiatric A+Ox3, euthymic affect Lymphatic no LE swelling, no calf tenderness Results & Data <Kiel Urena, - Last Filed: 08/17/18 07:04> Vital Signs (Past 12 Hours) Vital Signs Temp Pulse Resp BP 08/16/18 23:30 36.8 C 66 18 128/82 08/16/18 19:23 68 149/81 H 08/16/18 19:22 67 147/90 H Laboratory Results Laboratory Results - last 24 hr 08/16/18 08/16/18 08/17/18 07:05 07:05 05:54 WBC 19.22 H RBC 4.10 L Hgb 13.0 10.5 L Hct 38.2 31.8 L MCV 93.2 MCH 31.7 MCHC 34.0 RDW Std Deviation 46.0 RDW Coeff of Miguel Angel 13.6 Plt Count 244 MPV 10.6 H Sodium 136 Potassium 3.6 Chloride 105 Carbon Dioxide 23 Anion Gap 8.0 BUN 6 L Creatinine 0.66 Est Cr Clr Drug Dosing 92.8 Est GFR ( Amer) 141.3 Est GFR (Non-Af Amer) 121.9 BUN/Creatinine Ratio 8.3 L Glucose 99 Calcium 6.4 L Total Bilirubin 0.3 Direct Bilirubin < 0.1 AST 25 ALT 25 Alkaline Phosphatase 157 H Total Protein 6.2 L Albumin 2.0 L Globulin 4.2 H Albumin/Globulin Ratio 0.5 L Medications Administered Current Inpatient Medications Acetaminophen (Tylenol) 650 mg PO Q6H PRN PRN Reason: Pain/LOYA/Fever Stop: 09/14/18 11:41 Benzocaine (Dermoplast Pain Relieving [place]) 1 appln EXT PRN PRN PRN Reason: Perineal Discomfort Stop: 09/14/18 11:41 Buprenorphine HCl (Subutex) 8 mg SL BID [facility] Stop: 09/15/18 08:59 Last Admin: 08/16/18 20:56 Dose: 8 mg Documented by: Cocaine HCl (Supercream 0.870%) 1 gm EXT BID PRN PRN Reason: Hemorrhoidal Inflammation Stop: 08/29/18 11:41 Docusate Sodium (Colace) 100 mg PO BID [facility] Stop: 09/14/18 20:59 Last Admin: 08/16/18 20:56 Dose: 100 mg Documented by: Hydrocortisone (Anusol Hc) 25 mg ME BID PRN PRN Reason: Hemorrhoidal Inflammation Stop: 09/14/18 11:41 Oxytocin (Pitocin) 30 units in 500 mls @ 333.333 mls/hr IV .Q1H30M PRN; Protocol PRN Reason: Bleeding Control Stop: 09/14/18 11:41 Last Titration: 08/15/18 19:07 Dose: Infused Documented by: Lactated Ringer's (Lr) 1,000 mls @ 125 mls/hr IV .Q8H MICHAEL Stop: 09/14/18 11:44 Last Admin: 08/16/18 06:30 Dose: 75 mls/hr Documented by: Ibuprofen (Motrin) 600 mg PO Q4H PRN PRN Reason: Pain/LOYA/Cramping/Fever Stop: 09/14/18 11:41 Last Admin: 08/16/18 20:57 Dose: 600 mg Documented by: Metoprolol Succinate (Toprol Xl) 50 mg PO QAM [facility] Stop: 09/14/18 18:59 Last Admin: 08/16/18 08:39 Dose: 50 mg Documented by: Oxycodone/Acetaminophen (Percocet 5mg/325mg) 1 tab PO Q4H PRN PRN Reason: Pain not relieved by... Stop: 08/29/18 11:41 Prenat Multivit/Cozad/Iron/Folic Ac ( Vitamin) 1 tab PO [facility] Stop: 09/15/18 08:59 Last Admin: 08/16/18 08:39 Dose: 1 tab Documented by: <Baldev Huber MD - Last Filed: 08/17/18 08:35> Co-Signing Physician Notes Patient was noted to have elevated BPs this am. Will give AM dose of antihypertensive and recheck BPs q1hr and will plan for discharge at noon if BPs stable. Otherwise agree with above findings and plan Resident Activity Tracking <Kiel Urena DO - Last Filed: 08/17/18 07:04> Resident Involvement: Resident Care Provided Care Provided: OB Delivery
[2018-08-17] MEDS: DOCUSATE SODIUM 100 MG CAP PO SCH (08:49)
[2018-08-17] MEDS: PRENATAL VITAMIN 1 TAB PO SCH (08:49)
[2018-08-17] MEDS: BUPRENORPHINE HCL 8 MG SUBL SL SCH (08:50)
[2018-08-17] MEDS ORDERED: METOPROLOL SUCC 50MG EXT REL TAB PO SCH ×2 (09:00)
[2018-08-17 11:37] LABS: Amphetamine Urine, Confirm 1220 NG/ML (CUTOFF=250)
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
== END 2018-08-17 13:55 | disposition home or self-care (01) | DRG 807 ==
LOC: ED 10:43 → 4S1 11:25 → 4S2 08-16 10:47